=== PATIENT | female | born 1990 | race Caucasian/White ===

== ENCOUNTER 2022-04-15 14:55 | Emergency (ER) | payer BC ==
[~2022-04-15] VITALS: Ht 162.6 cm; Wt 69.4 kg
[2022-04-15 15:12] VITALS: BP 105/52
--- NOTE | 2022-04-15 15:21 | NUR ---
Patient ambulated to bed 12. Urine cup provided for clean catch specimen.
[2022-04-15 16:04] LABS: BASOPHILS % (AUTO) 0.3 % (0.0-2.0); EOSINOPHILS # (AUTO) 0.1 K/uL (0-0.4); EOSINOPHILS % (AUTO) 0.7 % (0.0-4.0); HEMATOCRIT 31.1 % (36-48); HEMOGLOBIN 10.3 g/dL (12.0-16.0); LYMPHOCYTES # (AUTO) 1.4 K/uL (2.5-16.5); LYMPHOCYTES % (AUTO) 17.6 % (20.5-51.1); MEAN CORPUSCULAR HEMOGLOBIN 27 pg (27-31); MEAN CORPUSCULAR HGB CONC 33 g/dL (33-37); MEAN CORPUSCULAR VOLUME 81.3 fL (80-94); MONOCYTES # (AUTO) 0.6 K/uL (0.8-1.0); MONOCYTES % (AUTO) 7.9 % (1.7-9.3); NEUTROPHILS # (AUTO) 5.9 K/uL (1.8-7.7); NEUTROPHILS % (AUTO) 73.5 % (42.2-75.2); PLATELET COUNT (AUTO) 246 K/uL (140-450); RED BLOOD CELL COUNT(AUTO) 3.83 MIL/uL (4.20-5.40)
[2022-04-15 17:45] LABS: APPEARANCE,URINE CLEAR (CLEAR); BILIRUBIN,URINE NEGATIVE (NEGATIVE); BLOOD, URINE NEGATIVE (NEGATIVE); COLOR,URINE YELLOW (YELLOW); LEUKOCYTE ESTERASE ,URINE NEGATIVE (NEGATIVE); NITRITE, URINE NEGATIVE (NEGATIVE); UGLUCOSE NEGATIVE (NEGATIVE)
--- NOTE | 2022-04-15 17:48 | NUR ---
Patient discharged with v/s stable. Written and verbal after care instructions threatened miscarriage given and explained. Patient verbalized understanding. Ambulatory with steady gait. All questions addressed prior to discharge. Advised to follow up with PMD.
[2022-04-15 17:54] LABS: RBC,URINE 0-5 /HPF (0-5); WBC,URINE 0-5 /HPF (0-5)
== END 2022-04-15 17:48 | disposition home or self-care (01) ==
LOC: MED 14:55
DX: O20.0 Threatened abortion (principal); Z3A.01 Less than 8 weeks gestation of pregnancy
CPT/HCPCS: 36415; 76817; 81001; 84702; 85025; 86900; 86901; 99284; Q0092

== ENCOUNTER 2022-11-15 22:53 | Observation (INO) | payer BC ==
[~2022-11-15] VITALS: Ht 162.6 cm; Wt 83.5 kg
[2022-11-15 23:42] VITALS: BP 113/65
[2022-11-15] MEDS ORDERED: PNV91TAB8 PO (23:47)
== END 2022-11-16 00:15 | disposition home or self-care (01) ==
LOC: MLD 22:53
PROVIDERS: ADMIT Obstetrics & Gynecology; ATTEND Obstetrics & Gynecology
DX: O62.9 Abnormality of forces of labor, unspecified (principal); Z3A.37 37 weeks gestation of pregnancy
CPT/HCPCS: G0378

== ENCOUNTER 2022-12-03 12:59 | Inpatient (IN) | payer BC ==
[~2022-12-03] VITALS: Ht 162.6 cm; Wt 84.8 kg
[~2022-12-03 12:59] MED LIST: PNV91TAB8 PO
[2022-12-03] MEDS ORDERED: ONDANSETRON 4 MG/2 ML VIAL IVP PRN (13:25)
[2022-12-03] MEDS ORDERED: CARBOPROST 250 MCG/ML AMP IM PRN (13:25)
[2022-12-03] MEDS ORDERED: METHYLERGONOVINE 0.2 MG/ML AMP IM PRN (13:25)
[2022-12-03] MEDS ORDERED: LACTATED RINGERS 1,000 ML IV SCH (13:25)
[2022-12-03] MEDS ORDERED: MORPHINE SULFATE 10 MG/ML VIAL IVP PRN (13:40)
[2022-12-03 13:50] LABS: APPEARANCE,URINE CLEAR (CLEAR); BILIRUBIN,URINE NEGATIVE (NEGATIVE); BLOOD, URINE NEGATIVE (NEGATIVE); COLOR,URINE YELLOW (YELLOW); LEUKOCYTE ESTERASE ,URINE 2+ (NEGATIVE); NITRITE, URINE NEGATIVE (NEGATIVE); UGLUCOSE NEGATIVE (NEGATIVE)
[2022-12-03 14:07] LABS: BASOPHILS % (AUTO) 0.3 % (0.0-2.0); EOSINOPHILS % (AUTO) 0.2 % (0.0-4.0); HEMATOCRIT 23.9 % (36-48); HEMOGLOBIN 7.6 g/dL (12.0-16.0); LYMPHOCYTES # (AUTO) 1.2 K/uL (2.5-16.5); LYMPHOCYTES % (AUTO) 14.9 % (20.5-51.1); MEAN CORPUSCULAR HEMOGLOBIN 23 pg (27-31); MEAN CORPUSCULAR HGB CONC 32 g/dL (33-37); MEAN CORPUSCULAR VOLUME 71.2 fL (80-94); MONOCYTES # (AUTO) 0.6 K/uL (0.8-1.0); MONOCYTES % (AUTO) 7.4 % (1.7-9.3); NEUTROPHILS # (AUTO) 6.3 K/uL (1.8-7.7); NEUTROPHILS % (AUTO) 77.2 % (42.2-75.2); PLATELET COUNT (AUTO) 208 K/uL (140-450); RED BLOOD CELL COUNT(AUTO) 3.35 MIL/uL (4.20-5.40); RED CELL DISTRIBUTION WIDTH 18.8 % (11.6-13.7); WHITE BLOOD COUNT (AUTO) 8.1 K/uL (4.8-10.8)
[2022-12-03 14:09] LABS: PROTHROMBIN TIME 9.1 secs (10.8-13.4); RBC,URINE 0-5 /HPF (0-5)
[2022-12-03 14:11] LABS: ALBUMIN 2.5 g/dL (3.4-5.0); ANION GAP 12.7 (8-16); CARBON DIOXIDE 22.9 mmol/L (21-32); CREATININE 0.6 mg/dL (0.6-1.3); POTASSIUM 3.6 mmol/L (3.5-5.1); TOTAL BILIRUBIN 0.4 mg/dL (0.0-1.0)
[2022-12-03] MEDS: MISOPROSTOL 25 MCG TAB VG PRN ×2 (15:09→20:14)
--- NOTE | 2022-12-03 16:04 | NUR ---
PATIENT HAS BEEN SCREENED AND CATEGORIZED LOW NUTRITION RISK. PATIENT WILL BE SEEN WITHIN 7 DAYS OF ADMISSION. 12/10/[address]
[2022-12-03] MEDS: NACL 0.9% 1,000 ML IV SCH (16:12)
[2022-12-03] MEDS ORDERED: ROPIVACAINE 0.2%/NS PREMIX 200 ML EPI ONE (19:32)
[2022-12-04] MEDS: NACL 0.9% 1,000 ML IV SCH (01:30)
[2022-12-04] MEDS: MISOPROSTOL 25 MCG TAB VG PRN (03:02)
[2022-12-04] MEDS ORDERED: OXYTOCIN 20 UNITS in LACTATED RINGERS 1,000 ML IV SCH (05:30)
[2022-12-04] MEDS ORDERED: OXYTOCIN 20 UNITS/LR PREMIX 1,000 ML IV ONE (05:34)
[2022-12-04] MEDS ORDERED: METHYLERGONOVINE 0.2 MG TAB PO PRN (07:50)
[2022-12-04] MEDS ORDERED: TEMAZEPAM 15 MG CAP PO PRN (07:50)
[2022-12-04] MEDS ORDERED: METHYLERGONOVINE 0.2 MG/ML AMP IM PRN (07:50)
[2022-12-04] MEDS ORDERED: OXYTOCIN 10 UNITS/ML VIAL IM PRN (07:50)
[2022-12-04] MEDS ORDERED: oxyCODONE/APAP 5/325 MG 1 TAB TAB PO PRN ×2 (07:50)
[2022-12-04] MEDS ORDERED: BENZOCAINE/MENTHOL 20%-0.5% 60 GM CAN TP PRN (07:50)
[2022-12-04] MEDS: IBUPROFEN 800 MG TAB PO PRN ×2 (09:51→17:22)
[2022-12-04] MEDS ORDERED: DOCUSATE SOD/SENNA 50/8.6 MG 1 TAB PO SCH (21:00)
[2022-12-05] MEDS: IBUPROFEN 800 MG TAB PO PRN ×2 (01:45→10:59)
[2022-12-05 06:19] LABS: HEMATOCRIT 28.8 % (36-48); HEMOGLOBIN 9.3 g/dL (12.0-16.0)
== END 2022-12-05 14:28 | disposition home or self-care (01) | DRG 560 ==
LOC: MLD 12:59 → OBSVTOIN 13:35 → MFCC 12-04 10:25
PROVIDERS: ADMIT Obstetrics & Gynecology; ATTEND Obstetrics & Gynecology
PROC: 30233N1 Transfusion of Nonautologous Red Blood Cells into Peripheral Vein, Percutaneous Approach (ICD-10-PCS; 2022-12-03)
PROC: 10D07Z6 Extraction of Products of Conception, Vacuum, Via Natural or Artificial Opening (ICD-10-PCS; principal; 2022-12-04)
PROC: 0HQ9XZZ Repair Perineum Skin, External Approach (ICD-10-PCS; 2022-12-04)
DX: O36.8130 Decreased fetal movements, third trimester, not applicable or unspecified (principal); Z37.0 Single live birth; Z20.822 Contact with and (suspected) exposure to COVID-19; O70.0 First degree perineal laceration during delivery; Z3A.39 39 weeks gestation of pregnancy
CPT/HCPCS: 36415; 51702; 59200; 76815; 80053; 81001; 85018; 85025; 85610; 85730; 86592; 86886; 86900; 86901; 86920; 87086; J2590; J2795; J7030; J7120; P9016; Q0092